=== PATIENT | female | born 1950 | race Caucasian/White ===

== ENCOUNTER → 2016-10-19 | Outpatient (CLI) | payer MEDICAID | LOC: FIMAGING 15:33 | PROVIDERS: ATTEND Family Medicine | DX: Z12.31 Encounter for screening mammogram for malignant neoplasm of breast (principal) | CPT/HCPCS: G0202 ==

== ENCOUNTER → 2016-12-26 | Outpatient (CLI) | payer MEDICAID | LOC: FIMAGING 12:44 | PROVIDERS: ATTEND Family Medicine | DX: Z13.820 Encounter for screening for osteoporosis (principal); M81.0 Age-related osteoporosis without current pathological fracture ==

== ENCOUNTER → 2017-10-27 | Outpatient (CLI) | payer OTHER, MEDICAID | LOC: FIMAGING 15:50 | PROVIDERS: ATTEND Family Medicine | DX: Z12.31 Encounter for screening mammogram for malignant neoplasm of breast (principal) ==